=== PATIENT | male | born 1950 | race African-American/Black ===

== ENCOUNTER 2022-10-05 19:50 | Emergency (ER) | payer BC ==
[2022-10-05 19:54] VITALS: BP 167/98; PULSE 103; RESP 18; TEMP 98; BMI 28.0
== END 2022-10-05 21:13 | disposition home or self-care (01) ==
LOC: JER 19:50
DX: R03.0 Elevated blood-pressure reading, without diagnosis of hypertension (principal)
CPT/HCPCS: 99282-25